=== PATIENT | female | born 1955 | race Caucasian/White ===

== ENCOUNTER 2017-07-14 12:10 | Emergency (ER) | payer OTHER ==
[2017-07-14] MEDS ORDERED: Aspirin 81 mg CHEW TAB* 81 MG TAB.CHEW PO ONE (12:43)
[2017-07-14 12:45] VITALS: BP 164/79
[2017-07-14] MEDS ORDERED: Aspirin 81 mg CHEW TAB* 81 MG TAB.CHEW ONE (12:46)
--- NOTE | 2017-07-14 13:01 | UC ---
Cardiac HPI - HPI Summary HPI Summary: Patient to urgent care with chief complaint of midepigastric pain radiating into her back makes it feel like she can't take a deep breath. Some nausea small amount of vomiting nothing seems to make the pain better or worse - History of Current Complaint Chief Complaint: UCAbdominalPain Stated Complaint: EPIGASTRIC AND BACK PAIN Time Seen by Provider: 07/14/17 12:35 Hx Obtained From: Patient Onset/Duration: Sudden Onset, Lasting Days - 1, Still Present Timing: Constant Initial Severity: Mild Current Severity: Mild Pain Intensity: 2 Chest Pain Location: Discrete at: - Midepigastric radiating through to the back Character: Dull/Aching, Tightness Aggravating Factor(s): Nothing Alleviating Factor(s): Nothing Associated Signs & Symptoms: Positive: Back Pain - Allergy/Home Medications Allergies/Adverse Reactions: Allergies Allergy/AdvReac Type Severity Reaction Status Date / Time No Known Allergies Allergy Verified 07/14/17 12:39 Home Medications: Home Medications Aspirin 81 mg CHEW TAB* [Aspirin Low Dose TAB*] 81 mg PO DAILY PRN 07/14/17 [ History Confirmed 07/14/17] Calcium Carbonate CHEW TAB* [Tums*] 1,000 mg PO BID 07/14/17 [History Confirmed 07/14/17] Citalopram TAB* [CeleXA TAB*] mg PO DAILY 07/14/17 [History] Simvastatin TAB(NF) [Zocor(NF)] mg PO 1700 07/14/17 [History] PMH/Surg Hx/FS Hx/Imm Hx Previously Healthy: No Endocrine History: Dyslipidemia Cardiovascular History: Hypertension Psychological History: Depression - Surgical History Surgical History: Yes Surgery Procedure, Year, and Place: Right Rotator Cuff; Hysterectomy, 1990; Breast Reduction - Family History Known Family History: Positive: Cardiac Disease, Hypertension, Other - Dyslipidemia - Social History Occupation: Employed Full-time Lives: With Family Alcohol Use: Occasionally Substance Use Type: None Smoking Status (MU): Heavy Every Day Tobacco Smoker Type: Cigarettes Amount Used/How Often: 1/2 PPD Length of Time of Smoking/Using Tobacco: Since Age 15 Have You Smoked in the Last Year: Yes Cessation Counseling: Patient Advised to Stop Review of Systems Constitutional: Negative Skin: Negative Eyes: Negative ENT: Negative Respiratory: Negative Cardiovascular: Chest Pain Gastrointestinal: Abdominal Pain, Vomiting, Nausea Genitourinary: Negative Motor: Negative Neurovascular: Negative Musculoskeletal: Negative Neurological: Negative Psychological: Negative Is Patient Immunocompromised?: No All Other Systems Reviewed And Are Negative: Yes Physical Exam Triage Information Reviewed: Yes Appearance: Well-Appearing, No Pain Distress, Well-Nourished Vital Signs: Initial Vital Signs Temp 98.3 F 07/14/17 12:41 Pulse 98 07/14/17 12:41 Resp 18 07/14/17 12:41 BP 164/79 07/14/17 12:41 Pulse Ox 99 07/14/17 12:41 Vital Signs Reviewed: Yes Eye Exam: Normal Eyes: Positive: Conjunctiva Clear ENT Exam: Normal ENT: Positive: Normal ENT inspection, Hearing grossly normal, Pharynx normal. Negative: Nasal congestion, Muffled voice, Hoarse voice, Dental tenderness Neck exam: Normal Neck: Positive: Supple, Nontender, No Lymphadenopathy Respiratory Exam: Normal Respiratory: Positive: Chest non-tender, Lungs clear, Normal breath sounds, No respiratory distress, No accessory muscle use Cardiovascular Exam: Normal Cardiovascular: Positive: RRR, No Murmur, Pulses Normal, Brisk Capillary Refill Abdominal Exam: Other Abdomen Description: Positive: No Organomegaly, Soft, Other: - ruq and mid epigastric pain. Negative: CVA Tenderness (R), CVA Tenderness (L), Hepatomegaly Bowel Sounds: Positive: Present Musculoskeletal: Positive: Strength Intact, ROM Intact, No Edema Neurological Exam: Normal Neurological: Positive: Alert, Muscle Tone Normal Psychological Exam: Normal Psychological: Positive: Normal Response To Family Skin Exam: Normal Diagnostics - EKG Cardiac Rate: NL Cardiac Rhythm: Sinus: Normal Ectopy: None ST Segment: Normal - Assessment/Plan Course Of Treatment: 243 mg of aspirin given to make full dose. AMA signed this patient refused EMS. Patient discharged from the urgent care to go directly to the [facility] emergency department for further evaluation and care - Clinical Impression Provider Diagnoses: Chest pain, epigastric discomfort Discharge - Sign-Out/Discharge Documenting (check all that apply): Discharge/Admit/Transfer - Discharge Plan Condition: Stable Disposition: AGAINST MEDICAL ADVICE Patient Education Materials: Chest Pain (DC) Referrals: Shanika Wood MD [Primary Care Provider] - Additional Instructions: Please go directly to the emergency department at [facility] - Billing Disposition and Condition Condition: STABLE Disposition: AMA
== END 2017-07-14 12:58 | disposition left against medical advice (07) ==
LOC: UCCORT 12:10
DX: R07.9 Chest pain, unspecified (principal); R10.13 Epigastric pain; F17.210 Nicotine dependence, cigarettes, uncomplicated; Z53.21 Procedure and treatment not carried out due to patient leaving prior to being seen by health care provider
CPT/HCPCS: 93005; 99202; A9270-GY; G0463